=== PATIENT | female | born 1975 | race Caucasian/White ===

== ENCOUNTER 2022-05-09 08:35 | Emergency (ER) | payer OTHER ==
[~2022-05-09] VITALS: Ht 160 cm; Wt 71.8 kg
[~2022-05-09 08:35] MED LIST: HYDR-4383 PO
[2022-05-09] MEDS ORDERED: bacitracin 15gm ointment TP ONE (09:25)
[2022-05-09] MEDS ORDERED: sulfamethoxazole/trimethoprim DS (800/160mg) tablet PO ONE (09:25)
[2022-05-09] MEDS ORDERED: SULF1TAB49 PO (09:29)
[2022-05-09 09:41] VITALS: BP 129/96
== END 2022-05-09 09:43 | disposition home or self-care (01) ==
LOC: ER 08:36
DX: L03.114 Cellulitis of left upper limb (principal); L03.312 Cellulitis of back [any part except buttock and flank]; J02.9 Acute pharyngitis, unspecified; Z88.0 Allergy status to penicillin; Z79.899 Other long term (current) drug therapy
CPT/HCPCS: 99283

== ENCOUNTER 2023-11-09 18:24 | Emergency (ER) | payer MEDICAID ==
[~2023-11-09] VITALS: Ht 160 cm; Wt 73.2 kg
[2023-11-09 19:12] LABS: BASOPHILS # (AUTO) 0.1 X10'3 (0-0.2); BASOPHILS % (AUTO) 0.9 % (0-1); EOSINOPHILS # (AUTO) 0.1 X10'3 (0-0.9); EOSINOPHILS % (AUTO) 2.4 % (0-6); HEMATOCRIT 40.2 % (35.0-45.0); HEMOGLOBIN 13.5 g/dl (12.0-16.0); LYMPHOCYTES # (AUTO) 1.3 X10'3 (1.1-4.8); LYMPHOCYTES % (AUTO) 22.3 % (21-51); MEAN CORPUSCULAR HEMOGLOBIN 33.9 PG (27.0-31.0); MEAN CORPUSCULAR HGB CONC 33.7 g/dL (33.0-36.5); MEAN CORPUSCULAR VOLUME 100.7 FL (78-98); MEAN PLATELET VOLUME 8.7 FL (7.4-10.4); MONOCYTES # (AUTO) 0.4 X10'3 (0-0.9); NEUTROPHILS % (AUTO) 68.4 % (42-75); PLATELET COUNT 182 X10'3 (140-440); RED BLOOD COUNT 3.99 X10'6 (4.20-5.60); RED CELL DISTRIBUTION WIDTH 15.9 % (11.5-14.5); WHITE BLOOD COUNT 5.8 X10'3 (4.5-11.0)
[2023-11-09 19:21] LABS: ALANINE AMINOTRANSFERASE 73 U/L (12-78); ALBUMIN 3.6 G/DL (3.4-5.0); ALKALINE PHOSPHATASE 68 IU/L (46-116); ANION GAP 6 (8-16); ASPARTATE AMINO TRANSFERASE 58 U/L (10-37); BILIRUBIN,TOTAL 0.3 MG/DL (0.1-1.0); BLOOD UREA NITROGEN 4 MG/DL (7-18); BUN/CREATININE RATIO 6.3 (10.0-20.0); CALCIUM 9.1 MG/DL (8.5-10.1); CHLORIDE 102 MMOL/L (99-107); CREATININE 0.63 MG/DL (0.40-0.90); GLUCOSE 143 MG/DL (70-104); LIPASE 36 U/L (16-77); POTASSIUM 3.5 MMOL/L (3.5-5.1); SODIUM 139 MMOL/L (135-145); TOTAL CARBON DIOXIDE 30.8 MMOL/L (24-32); TOTAL PROTEIN 7.2 G/DL (6.4-8.2); eCRCL 92 ML/MIN; eGFR > 90 ML/MIN
[2023-11-09 19:30] LABS: BILIRUBIN,URINE NEGATIVE (Neg); CLARITY,URINE CLEAR (Clear); COLOR,URINE STRAW (Yellow); GLUCOSE, URINE NEGATIVE (Neg); KETONES,URINE NEGATIVE (Neg); LEUKOCYTE ESTERASE ,URINE TRACE (Neg); NITRITES, URINE NEGATIVE (Neg); OCCULT BLOOD,URINE NEGATIVE (Neg); PROTEIN,URINE NEGATIVE (Neg); URINE HCG NEGATIVE (NEG); UROBILINOGEN,URINE 0.2 E.U/dL (0.2-1.0)
[2023-11-09 19:38] LABS: UA COLLECTION TYPE CLN CATCH MIDSTREAM
[2023-11-09 19:39] LABS: SQUAMOUS EPITHELIAL CELL,UR FEW /LPF (FEW)
[2023-11-09 19:40] LABS: BACTERIA,URINE FEW /HPF (Neg); RBC,URINE 0-2 /HPF (0-2); WBC,URINE 0-4 /HPF (0-4)
[2023-11-09] MEDS: ketorolac trometh 30MG/ML vial 30 MG/ML VIAL IV ONE (20:04)
[2023-11-09] MEDS: normal saline 1000ML IV soln IVB ONE (20:04)
[2023-11-09] MEDS: ondansetron/PF 4mg/2ml inj IV ONE (20:04)
[2023-11-09] MEDS ORDERED: OMEP40CA21 PO (20:26)
[2023-11-09] MEDS ORDERED: ONDA-243 PO (20:26)
[2023-11-09] MEDS ORDERED: DICY10CA88 PO (20:26)
[2023-11-09 20:43] VITALS: BP 109/89; PULSE 59; RESP 16; O2SAT 98
[2023-11-09 21:06] VITALS: TEMP 98.9
[2023-11-12] MEDS ORDERED: CEFU250T95 PO (13:51)
== END 2023-11-09 21:08 | disposition home or self-care (01) ==
LOC: ER 18:25
DX: R10.84 Generalized abdominal pain (principal); R11.2 Nausea with vomiting, unspecified; G89.29 Other chronic pain; K86.2 Cyst of pancreas; K76.0 Fatty (change of) liver, not elsewhere classified; Z79.899 Other long term (current) drug therapy
CPT/HCPCS: 76700; 80053; 81001; 81025; 83690; 85025; 87077; 87088; 87186; 93005; 96361; 96374; 96375; 99285; J1885; J2405; J7030